=== PATIENT | male | born 1990 | race Two or more races ===

== ENCOUNTER 2025-05-01 23:50 | Inpatient (IN) | payer MEDICAID, OTHER ==
[~2025-05-01] VITALS: Ht 22.9 cm; Wt 69.1 kg
--- NOTE | 2025-05-02 00:41 | ED.PDOC ---
History of Present Illness HPI Comments 34-year-old male who came to ER for generalized weakness. Patient has history of diabetes type 2 but does not closely monitor his blood sugar levels. Past 2 days patient has been having generalized weakness, epigastric abdominal pain, nausea and vomiting. Blood sugar taken at home was 365. Patient admits that he is a daily alcohol drinker as well. Chief Complaint: General Weakness Time Seen by MD: 00:40 Reviewed Notes: Nurses Notes Allergies: Coded Allergies: No Known Drug Allergy (Verified Allergy, Unknown, 05/01/25) Information Source: Patient Mode of Arrival: Ambulatory Past Medical History PAST MEDICAL HISTORY: DM Surgical History: Denies all surgeries Family History Family History: Reviewed,noncontributory to illness Social History Smoker: Non-Smoker Alcohol: Denies ETOH Use Drugs: Denies Drug Use Lives In: Home Constitutional: reports: weakness; denies: chills, diaphoresis, fatigue, fever, malaise, sweats, others EENTM: denies: blurred vision, double vision, ear bleeding, ear discharge, ear drainage, ear pain, ear ringing, eye pain, eye redness, hearing loss, mouth pain, mouth swelling, nasal discharge, nose bleeding, nose congestion, nose pain, photophobia, tearing, throat pain, throat swelling, voice changes, others Respiratory: denies: cough, hemoptysis, orthopnea, SOB at rest, shortness of breath, SOB with excertion, stridor, wheezing, others Cardiovascular: denies: chest pain, dizzy spells, diaphoresis, Dyspnea on exertion, edema, irregular heart beat, left arm pain, lightheadedness, palpitations, PND, syncope, others Gastrointestinal: reports: abdominal pain, nausea, vomiting; denies: abdomen distended, blood streaked bowels, constipated, diarrhea, dysphagia, difficulty swallowing, hematemesis, melena, poor appetite, poor fluid intake, rectal bleeding, rectal pain, others Genitourinary: denies: burning, dysuria, flank pain, frequency, hematuria, incontinence, penile discharge, penile sore, pain, testicle pain, testicle swelling, urgency, others Neurological: denies: dizziness, fainting, headache, left sided numbness, left sided weakness, numbness, paresthesia, pre-existing deficit, right sided numbness, right sided weakness, seizure, speech problems, tingling, tremors, weakness, others Musculoskeletal: denies: back pain, gout, joint pain, joint swelling, muscle pain, muscle stiffness, neck pain, others Integumetry: denies: bruises, change in color, change in hair/nails, dryness, laceration, lesions, lumps, rash, wounds, others Allergic/Immunocompromised: denies: Difficulty Healing, Frequent Infections, Hives, Itching, others Hematologic/Lymphatic: denies: anemia, blood clots, easy bleeding, easy bruising, swollen glands, others Endocrine: denies: excessive hunger, excessive sweating, excessive thirst, excessive urination, flushing, intolerance to cold, intolerance to heat, unexplained weight gain, unexplained weight loss, others Psychiatric: denies: anxiety, bipolar disorder, depression, hopeless, panic disorder, schizophrenia, sleepless, suicidal, others Physical Exam General Appearance: No Apparent Distress, Normal, Other (Alcohol breath) HEENT: Normal ENT Inspection, Pharynx Normal, TMs Normal Neck: Full Range of Motion, Non-Tender, Normal, Normal Inspection Respiratory: Chest Non-Tender, Lungs Clear, No Accessory Muscle Use, No Respiratory Distress, Normal Breath Sounds Cardiovascular: No Edema, No JVD, No Murmur, No Gallop, Normal Peripheral Pulses, Tachycardia Breast Exam: Deferred Gastrointestinal: Epigastric, No Organomegaly, No Pulsatile Mass, Normal Bowel Sounds, Soft, Tenderness Genitalia: Deferred Pelvic: Deferred Rectal: Deferred Extremities: No calf tenderness, Normal capillary refill, Normal inspection, Normal range of motion, Non-tender, No pedal edema Musculoskeletal : Apperance: Normal Neurologic: Alert, tie tamper II-XII nml as Tested, No Motor Deficits, Normal Affect, Normal Mood, No Sensory Deficits Cerebellar Function: Normal Reflexes: Normal Skin: Dry, Normal Color, Warm Lymphatic: No Adenopathy Was a procedure done? Was a procedure done?: No Differential Dx Considerations may include: Anemia, electrolyte imbalance, hyperglycemia, alcohol intoxication, diabetic ketoacidosis, gastritis X-Ray, Labs, Meds, VS Vital Signs Date Time Temp Pulse Resp B/P (MAP) Pulse Ox O2 Delivery O2 Flow Rate FiO2 05/01/25 23:52 99.0 114 16 124/79 99 99.0 Lab Test 05/02/25 00:51 12/7/25 00:40 Range/Units POC Glucose 268 H 70-106 mg/dl White Blood Count 4.4 4.4-10.8 10^3/uL Red Blood Count 5.60 4.5-5.90 10^6/uL Hemoglobin 16.5 13.5-17.5 g/dL Hematocrit 49.6 41.0-53.0 % Mean Corpuscular Volume 88.5 80.0-100.0 fL Mean Corpuscular Hemoglobin 29.5 28.0-32.0 pg Mean Corpuscular Hemoglobin Concent 33.3 32.0-36.0 g/dL Red Cell Distribution Width 13.6 11.8-14.3 % Platelet Count 281 140-450 10^3/uL Mean Platelet Volume 7.4 6.9-10.8 fL Neutrophils (%) (Auto) 73.1 37.0-80.0 % Lymphocytes (%) (Auto) 21.8 10.0-50.0 % Monocytes (%) (Auto) 4.6 0.0-12.0 % Eosinophils (%) (Auto) 0.1 0.0-7.0 % Basophils (%) (Auto) 0.4 0.0-2.0 % Neutrophils # (Auto) 3.2 1.6-8.6 10 ^3/uL Lymphocytes # (Auto) 1.0 0.4-5.4 10 ^3/uL Monocytes # (Auto) 0.2 0-1.3 10 ^3/uL Eosinophils # (Auto) 0 0-0.8 10 ^3/uL Basophils # (Auto) 0 0-0.2 10 ^3/uL Nucleated Red Blood Cells 0.0 % Sodium Level 135 L 136-145 mmol/L Potassium Level 4.5 3.5-5.1 mmol/L Chloride Level 90 L 98-107 mmol/L Carbon Dioxide Level 16 L 20-31 mmol/L Anion Gap 29 H 5-15 Blood Urea Nitrogen 9 9-23 mg/dL Creatinine 0.99 0.700-1.30 mg/dL Glomerular Filtration Rate Calc 103 >90 mL/min BUN/Creatinine Ratio 9.1 L 10.0-20.0 Serum Glucose 281 H 74-106 mg/dL Calcium Level 9.9 8.7-10.4 mg/dL Lipase 26 12-53 U/L Plasma/Serum Blood Alcohol 190.7 H <10 mg/dL Time of 1ST Reevaluation: 00:31 Reevaluation 1ST: Unchanged Time of 2ND Reevaluation: 02:03 Reevaluation 2ND: Improved Patient Education/Counseling: Diagnosis, Treatment, Prognosis, Need For Follow Up Family Education/Counseling: Diagnosis, Treatment, Prognosis, Need For Follow Up, No Family Present Comments This is a patient who is diabetic who is also an alcoholic, presents to the ER complaining about generalized weakness. Patient is smells heavily of alcohol. He admits that for the past week he has been drinking every day. Prior to that he was taking Klonopin nightly habitually. Patient has DKA in addition to alcohol intoxication. He had not show any signs of withdrawal at this time. However with time he is likely to develop alcohol withdrawal since he is not able to drink especially with the concurrent DKA. Patient will be admitted to ICU for treatment of DKA as well as monitoring of alcohol withdrawal symptoms. SEPSIS Sepsis Screen Date sepsis recognized/suspect: May 01, 2025 Time Sepsis recognized/suspect: 2354 Recent Procedure: No On Antibiotic Therapy: No Respiratory Rate >20: No Heart Rate >90: Yes Temp<36 C (96.8 F) or >38.3 C: No SBP <90 or MAP <65 mmHG: No New Acute Mental Status Change: No Is the patient on CPAP, BIPAP,: No Physician Orders Accucheck (05/02/25 01:00) Accucheck (05/02/25 02:00) Accucheck (05/02/25 03:00) Accucheck (05/02/25 04:00) Accucheck (05/02/25 05:00) Accucheck (05/02/25 06:00) Accucheck (05/02/25 07:00) Accucheck (05/02/25 08:00) Accucheck (05/02/25 09:00) Accucheck (05/02/25 10:00) Accucheck (05/02/25 11:00) Accucheck (05/02/25 12:00) Accucheck (05/02/25 13:00) Accucheck (05/02/25 14:00) Accucheck (05/02/25 15:00) Accucheck (05/02/25 16:00) Accucheck (05/02/25 17:00) Accucheck (05/02/25 18:00) Accucheck (05/02/25 19:00) Accucheck (05/02/25 20:00) Accucheck (05/02/25 21:00) Accucheck (05/02/25 22:00) Accucheck (05/02/25 23:00) Vital Signs Date Time Temp Pulse Resp B/P (MAP) Pulse Ox O2 Delivery O2 Flow Rate FiO2 05/01/25 23:52 99.0 114 16 124/79 99 99.0 Laboratory Tests Test 05/02/25 00:40 White Blood Count 4.4 10^3/uL (4.4-10.8) Departure 1 Departure Time of Disposition: 02:02 Impression: Primary Impression: DKA (diabetic ketoacidosis) Additional Impression: Alcohol abuse Disposition: ADMITTED INPATIENT Admit to: ICU Condition: Serious Discharged With: Self, Relative Critical Care Note Critical Care Time?: Yes (35 min-critical care time only) Critical care comment: Due to concerns for patients condition deteriorating, the care required my highest level of attention and readiness to intervene. I assessed the patient, reviewed the medical records, ordered the appropriate tests and treatments, then reassessed for results and responsiveness. I communicated with medical personnel and consultants and formulated a plan of care. Total critical care time 55 minutes excludes any procedures Stability Stability form required: No Heart Score Heart Score: Heart Score Response (Comments) Value History N/A 0 EKG N/A 0 Age N/A 0 Risk Factors N/A 0 Troponin N/A 0 Total 0 I personally scribed for CLARE PEREZ MD ([email or web address]) on 05/02/25 at 00:41. Electronically submitted by Ye Florence ([email or web address]). CLARE PEREZ MD May 02, 2025 00:41
[2025-05-02 00:51] LABS: Hematocrit 49.6 % (41.0-53.0); Hemoglobin 16.5 g/dL (13.5-17.5); Mean Corpuscular Hemoglobin 29.5 pg (28.0-32.0); Mean Corpuscular Volume 88.5 fL (80.0-100.0); Nucleated Red Blood Cells % 0.0 %
[2025-05-02 01:01] LABS: Potassium 4.5 mmol/L (3.5-5.1)
[2025-05-02 01:02] LABS: Chloride 90 mmol/L (98-107); Sodium 135 mmol/L (136-145)
[2025-05-02 01:03] LABS: Anion Gap 29 (5-15); Calcium 9.9 mg/dL (8.7-10.4)
[2025-05-02 01:07] LABS: Carbon Dioxide 16 mmol/L (20-31)
[2025-05-02 01:08] LABS: BUN/Creatinine Ratio 9.1 (10.0-20.0); Lipase 26 U/L (12-53)
[2025-05-02 01:09] LABS: Blood Urea Nitrogen 9 mg/dL (9-23); Glucose 281 mg/dL (74-106)
[2025-05-02] MEDS ORDERED: DEXTROSE (50%) 50ML SYRG IV PRN (02:15)
[2025-05-02] MEDS: INSULIN LANTUS (GLARGINE) 1 /0.01ml (100units/ml) SC ONE ×2 (02:15→12:27)
[2025-05-02 02:33] LABS: Magnesium 2.4 mg/dL (1.6-2.6)
[2025-05-02] MEDS: ACCU-CHEK COMFORT CURVE STRIP VI SCH ×2 (03:00→18:14)
[2025-05-02] MEDS: SODIUM CHLORIDE 0.9% 1,000 ML IV ONE (03:52)
[2025-05-02] MEDS: ONDANSETRON ODT 4 MG TAB PO ONE (04:09)
[2025-05-02] MEDS: SODIUM CHLORIDE 0.9% 1,000 ML IV SCH ×5 (04:15→14:47)
[2025-05-02 06:00] VITALS: PULSE 95; RESP 26; O2SAT 100
[2025-05-02] MEDS: INSULIN DRIP 100 UNIT/100ML 100 ML IV SCH (06:00)
[2025-05-02 07:28] LABS: Urine Protein, UAD 1+ (Negative)
[2025-05-02 08:09] VITALS: PULSE 125; RESP 24; O2SAT 100
[2025-05-02] MEDS: ACETAMINOPHEN 325 MG TAB PO ONE (08:59)
[2025-05-02] MEDS: KETOROLAC TROMETH 30 MG/ML 1ML VIAL IV ONE (10:52)
[2025-05-02] MEDS ORDERED: ACETAMINOPHEN 325 MG TAB PO PRN (12:00)
--- NOTE | 2025-05-02 13:22 | DVHHP2 ---
History of Present Illness History of Present Illness This is a 34-year-old male with a medical history of type 2 diabetes mellitus on Lantus 18 units daily and metformin at home. He reports daily use of clonazepam for sleep, but he recently ran out and began drinking alcohol over the past two days, consuming approximately four beers per day. Since then, he developed generalized weakness, epigastric abdominal pain, and nausea. In the ED, CBC was normal. CMP showed an anion gap of 29, bicarbonate 16, and glucose 300 - 281. Serum ketones were >4000, and A1c 13.2. He was started on an insulin drip for concern of diabetic ketoacidosis, though alcoholic or starvation ketosis may also be contributing. His glucose has improved on insulin therapy. A repeat CMP now shows an anion gap of 17 with slight improvement in bicarbonate. Insulin drip will be stopped and transitioned to subcutaneous insulin. A repeat BMP at 7 p.m. is ordered to ensure safe continuation. Past Medical History Type 2 diabetes mellitus. Past Surgical History None reported. Social History Denies smoking. Started drinking alcohol over the past two days after running out of clonazepam. No other substances reported. ROS Positive for generalized weakness, epigastric abdominal pain, and nausea. No other complaints reported in the systems reviewed. Review of Systems Allergies: Coded Allergies: No Known Drug Allergy (Verified Allergy, Unknown, 05/01/25) Medications Current Medications Medications Dose Ordered Sig/Edwin Route Start Time Stop Time Status Last Admin Dose Admin Insulin Human (Reg)/Sodium Chloride 100 ml @ 0.5 mls/hr Q24H IV 05/02/25 02:15 05/02/25 06:00 3 MLS/HR Dextrose 50 ml UD PRN IV 05/02/25 02:15 Diagnostic Test (Pha) 1 strip Q90MIN 05/02/25 03:00 05/02/25 12:01 1 STRIP Sodium Chloride 1,000 ml @ 60 mls/hr [id number] IV 05/02/25 12:00 05/02/25 12:27 60 MLS/HR Acetaminophen 650 mg Q6HP PRN PO 05/02/25 12:00 Enoxaparin Sodium 40 mg DAILY SC 05/03/25 10:00 Exam Vital Signs Vital Signs Date Time Temp Pulse Resp B/P (MAP) Pulse Ox O2 Delivery O2 Flow Rate FiO2 05/02/25 13:18 105 05/02/25 12:45 16 125/86 (99) 100 05/02/25 12:00 98.2 98.2 05/02/25 08:09 Room Air* 0 21 Exam General: Alert, oriented, resting comfortably. HEENT: Normal. CV: Regular rate and rhythm. No murmurs. Lungs: Clear bilaterally. Abdomen: Soft, nontender, nondistended. Extremities: No edema. Neuro: no focal deficits. Skin: Warm, dry. Labs/Xrays Labs Test 05/02/25 12:18 05/02/25 07:08 05/02/25 00:40 Range/Units POC Glucose 199 H 70-106 mg/dl Urine Color Light-yellow Yellow Urine Clarity Clear Clear Urine pH 5.5 5.0-9.0 Urine Specific [place] 1.029 1.001-1.035 Urine Protein 1+ H Negative Urine Ketones 4+ H Negative Urine Blood Negative Negative /uL Urine Nitrite Negative Negative Urine Bilirubin Negative Negative Urine Urobilinogen Normal Negative mg/dL Urine Leukocyte Esterase Negative Negative /uL Urine RBC 1 0 - 3 /hpf Urine Microscopic WBC 1 0-3 /HPF Urine Squamous Epithelial Cells None seen <5 /hpf Urine Bacteria None seen None Seen /hpf Urine Mucus Few None Seen Urine Glucose 4+ H Normal mg/dL White Blood Count 4.4 4.4-10.8 10^3/uL Red Blood Count 5.60 4.5-5.90 10^6/uL Hemoglobin 16.5 13.5-17.5 g/dL Hematocrit 49.6 41.0-53.0 % Mean Corpuscular Volume 88.5 80.0-100.0 fL Mean Corpuscular Hemoglobin 29.5 28.0-32.0 pg Mean Corpuscular Hemoglobin Concent 33.3 32.0-36.0 g/dL Red Cell Distribution Width 13.6 11.8-14.3 % Platelet Count 281 140-450 10^3/uL Mean Platelet Volume 7.4 6.9-10.8 fL Neutrophils (%) (Auto) 73.1 37.0-80.0 % Lymphocytes (%) (Auto) 21.8 10.0-50.0 % Monocytes (%) (Auto) 4.6 0.0-12.0 % Eosinophils (%) (Auto) 0.1 0.0-7.0 % Basophils (%) (Auto) 0.4 0.0-2.0 % Neutrophils # (Auto) 3.2 1.6-8.6 10 ^3/uL Lymphocytes # (Auto) 1.0 0.4-5.4 10 ^3/uL Monocytes # (Auto) 0.2 0-1.3 10 ^3/uL Eosinophils # (Auto) 0 0-0.8 10 ^3/uL Basophils # (Auto) 0 0-0.2 10 ^3/uL Nucleated Red Blood Cells 0.0 % Sodium Level 135 L 136-145 mmol/L Potassium Level 4.5 3.5-5.1 mmol/L Chloride Level 90 L 98-107 mmol/L Carbon Dioxide Level 16 L 20-31 mmol/L Anion Gap 29 H 5-15 Blood Urea Nitrogen 9 9-23 mg/dL Creatinine 0.99 0.700-1.30 mg/dL Glomerular Filtration Rate Calc 103 >90 mL/min BUN/Creatinine Ratio 9.1 L 10.0-20.0 Serum Glucose 281 H 74-106 mg/dL Serum Osmolality 256 L 278-298 mOsm/kg Calcium Level 9.9 8.7-10.4 mg/dL Phosphorus Level 4.3 2.4-5.1 mg/dL Magnesium Level 2.4 1.6-2.6 mg/dL Lipase 26 12-53 U/L Beta-Hydroxybutyric Acid > 4.500 H < 0.4 mmol/L Plasma/Serum Blood Alcohol 190.7 H <10 mg/dL SEPSIS Sepsis Screen Date sepsis recognized/suspect: May 02, 2025 Time Sepsis recognized/suspect: 618 Recent Procedure: No On Antibiotic Therapy: No Respiratory Rate >20: Yes Heart Rate >90: No Temp<36 C (96.8 F) or >38.3 C: No SBP <90 or MAP <65 mmHG: No New Acute Mental Status Change: No Is the patient on CPAP, BIPAP,: No Physician Orders Basic Metabolic Panel (05/02/25 11:49) Admit (05/02/25 11:50) Code Status (05/02/25 11:50) Vital Signs .PER UNIT PROTOCOL (05/02/25 11:50) Review Orders With Adm. (05/02/25 11:50) Npo (Nothing By Mouth) Diet (05/02/25 Lunch) Sodium Chloride 0.9% (05/02/25 12:00) Acetaminophen Tablet (Tylenol Tablet) (05/02/25 12:00) Notify Md Of Changes From Base (05/02/25 11:50) Advance Directive (05/02/25 11:50) Patient Condition (05/02/25 11:50) Allergies (05/02/25 11:50) Hemoglobin A1c (05/02/25 11:50) Enoxaparin Sodium (Lovenox) (05/03/25 10:00) Oxygen By Nasal Cannula (05/02/25 11:50) Stat Ekg For Chest Pain (05/02/25 11:50) Notify Md Of Changes From Base (05/02/25 11:50) Armature Winder Repair Helper For 24 Hours (05/02/25 11:50) Emergency Dysrhythmia Protocol (05/02/25 11:50) Rhythm Strips Once Every Shift (05/02/25 11:50) Communication Order (05/02/25 11:55) Chest Xray 1 View (05/02/25 12:46) Diphenhydramine Capsule (Benadryl Capsul (05/02/25 13:15) Vital Signs Date Time Temp Pulse Resp B/P (MAP) Pulse Ox O2 Delivery O2 Flow Rate FiO2 05/02/25 13:18 105 05/02/25 12:45 111 16 125/86 (99) 100 05/02/25 12:31 96 16 117/73 (88) 99 05/02/25 12:15 77 17 115/73 (87) 99 05/02/25 12:00 98.2 82 20 124/79 (94) 99 98.2 05/02/25 11:45 105 18 132/80 (97) 99 05/02/25 11:30 100 21 131/77 (95) 99 05/02/25 11:15 94 18 129/81 (97) 99 05/02/25 11:00 145 17 112/92 (99) 99 05/02/25 10:45 87 17 123/81 (95) 99 05/02/25 10:30 91 16 122/79 (93) 99 05/02/25 10:15 94 18 122/64 (83) 99 05/02/25 10:00 92 19 116/64 (81) 100 05/02/25 09:45 97 19 121/79 (93) 99 05/02/25 09:30 107 15 131/79 (96) 98 05/02/25 09:15 93 16 126/83 (97) 99 05/02/25 09:00 108 19 128/91 (103) 98 05/02/25 08:45 102 34 128/81 (97) 99 05/02/25 08:31 108 05/02/25 08:30 99 22 124/81 (95) 99 05/02/25 08:15 102 21 125/83 (97) 98 05/02/25 08:09 125 24 100 Room Air* 0 21 05/02/25 08:00 125 24 132/88 (103) 100 05/02/25 07:45 122 19 133/86 (102) 98 05/02/25 07:30 98.5 125 24 132/88 (103) 100 98.5 05/02/25 07:15 103 20 126/81 (96) 98 05/02/25 07:00 109 31 128/87 (101) 99 05/02/25 06:45 111 29 140/87 (104) 98 05/02/25 06:30 108 21 115/62 (79) 98 05/02/25 06:15 102 21 135/88 (104) 99 05/02/25 06:00 98.3 95 26 130/87 (101) 100 98.3 05/02/25 06:00 95 26 100 Room Air* 0 21 Medications Medications Dose Ordered Sig/Edwin Route Start Time Stop Time Status Last Admin Dose Admin Acetaminophen 650 mg ONCE ONCE PO 05/02/25 09:00 05/02/25 09:01 DC 05/02/25 08:59 650 MG Diagnostic Test (Pha) 1 strip Q90MIN 05/02/25 03:00 05/02/25 12:01 1 STRIP Insulin Glargine 20 units ONCE ONCE SC 05/02/25 12:00 05/02/25 12:07 DC 05/02/25 12:27 20 UNITS Insulin Human (Reg)/Sodium Chloride 100 ml @ 0.5 mls/hr Q24H IV 05/02/25 02:15 05/02/25 06:00 3 MLS/HR Ketorolac Tromethamine 15 mg ONCE ONCE IV 05/02/25 10:30 05/02/25 10:44 DC 05/02/25 10:52 15 MG Sodium Chloride 1,000 ml @ 60 mls/hr [id number] IV 05/02/25 12:00 05/02/25 12:27 60 MLS/HR Sodium Chloride 1,000 ml @ 150 mls/hr Q6H40M IV 05/02/25 08:15 05/02/25 12:07 DC 05/02/25 08:19 150 MLS/HR Sodium Chloride 1,000 ml @ 250 mls/hr Q4H IV 05/02/25 06:15 05/02/25 08:14 DC 05/02/25 06:16 250 MLS/HR Sodium Chloride 1,000 ml @ 500 mls/hr Q2H IV 05/02/25 02:15 05/02/25 06:14 DC 05/02/25 05:30 500 MLS/HR Assessment/Plan Assessment/Plan #Diabetic ketoacidosis #Starvation and alcoholic ketoacidosis #Type 2 diabetes mellitus, uncontrolled Presentation consistent with mild to moderate DKA in the setting of poorly controlled diabetes and recent alcohol use. Initial anion gap was 29 with elevated ketones and hyperglycemia, now improving to 17. Glucose trending down, bicarbonate improving. Transition to subcutaneous insulin, continue monitoring metabolic status, and repeat BMP at 7 p.m. to confirm closure and safety of ongoing subcutaneous regimen. IV fluids 120 cc/h Lantus 20 UI already given Lantus 20 UI at bed time as well Moderate ISS Transfer to telemetry hba1c 13 #Alcohol use Recent binge drinking triggered by abrupt cessation of clonazepam. Could contribute to ketosis. Monitor for withdrawal, provide supportive care, and supervisor counseling and guidance regarding cessation and follow-up care. Case discussed with Dr Sloan Full code Plan discussed with: Patient, Other (rn) My Orders Orders - DANA GARCIA RESIDENT Procedure Category Date Status Time Basic Metabolic Panel LAB 05/02/25 Logged 11:49 Admit ADMIT 05/02/25 Transmitted 11:50 Code Status CODE 05/02/25 Transmitted 11:50 Vital Signs DEE 05/02/25 In Process 11:50 Review Orders With DEE 05/02/25 In Process 11:50 Npo (Nothing By DIET 05/02/25 Transmitted Mouth) Diet Lunch Sodium Chloride 0.9% PHA 05/02/25 In Process 12:00 Acetaminophen Tablet PHA 05/02/25 In Process (Tylenol Tablet) 12:00 Notify Md Of Changes [facility] 05/02/25 In Process From Base 11:50 Advance Directive DEE 05/02/25 In Process 11:50 Patient Condition ORDERS 05/02/25 Transmitted 11:50 Allergies DEE 05/02/25 In Process 11:50 Hemoglobin A1c LAB 05/02/25 In Process 11:50 Enoxaparin Sodium PHA 05/03/25 In Process (Lovenox) 10:00 Oxygen By Nasal RT 05/02/25 Transmitted Cannula 11:50 Stat Ekg For Chest [facility] 05/02/25 In Process Pain 11:50 Notify Md Of Changes [facility] 05/02/25 In Process From Base 11:50 Armature Winder Repair Helper For [facility] 05/02/25 In Process 24 Hours 11:50 Emergency Dysrhythmia [facility] 05/02/25 In Process Protocol 11:50 Rhythm Strips Once [facility] 05/02/25 In Process Every Shift 11:50 Communication Order ORDERS 05/02/25 Transmitted 11:55 Chest Xray 1 View XY 05/02/25 Taken 12:46 Diphenhydramine [facility] 05/02/25 Logged Capsule (Benadryl 13:15 Date of Service: May 02, 2025 Billing Provider: TEENA SLOAN MD Common Visit Codes: [id number] INP/OBS CARE (HIGH) Secondary Visit Codes: [id number] CARE PLAN 30 MINUTES DANA GARCIA May 02, 2025 13:22
--- NOTE | 2025-05-02 13:22 | DVH ---
CLINICAL INFORMATION: Rule out aspiration pneumonia. No other clinical information provided. TECHNIQUE: Single AP portable chest radiograph was obtained. COMPARISON: None FINDINGS: Lungs: Mild atelectasis in the left lung base. No focal consolidation. Mild perihilar interstitial opacities. Cardiac: Heart size is within normal limits. Pulmonary vasculature: Unremarkable. Mediastinum/brenda: Unremarkable. Bones: No acute osseous abnormality identified. Other: No other significant findings. IMPRESSION: Mild atelectasis in the left lung base and mild perihilar interstitial opacities. No focal consolidation.
[2025-05-02 14:10] LABS: Chloride 101 mmol/L (98-107); Potassium 4.5 mmol/L (3.5-5.1)
[2025-05-02 14:11] LABS: Anion Gap 17 (5-15)
[2025-05-02 14:12] LABS: Calcium 9.4 mg/dL (8.7-10.4); Carbon Dioxide 17 mmol/L (20-31); Sodium 135 mmol/L (136-145)
[2025-05-02 14:16] LABS: BUN/Creatinine Ratio 11.7 (10.0-20.0); Blood Urea Nitrogen 11 mg/dL (9-23)
[2025-05-02 14:17] LABS: Glucose 180 mg/dL (74-106)
[2025-05-02] MEDS: KETOROLAC TROMETH 30 MG/ML 1ML VIAL IV PRN (16:04)
[2025-05-02] MEDS: InsuLIN REG 1unit/0.01ml Soln (100units/ml) SC SCH ×2 (17:05→22:00)
[2025-05-02] MEDS ORDERED: INSULIN LANTUS (GLARGINE) 1 /0.01ml (100units/ml) SC SCH ×2 (17:30→22:00)
[2025-05-02] MEDS: INSULIN LANTUS (GLARGINE) 1 /0.01ml (100units/ml) SC SCH (17:49)
[2025-05-02 18:08] LABS: Base Excess -14.3 mmol/L (-2.0-3.0)
[2025-05-02 19:12] VITALS: PULSE 96; RESP 19; O2SAT 99
[2025-05-02 19:21] LABS: Chloride 102 mmol/L (98-107); Potassium 4.0 mmol/L (3.5-5.1); Sodium 137 mmol/L (136-145)
[2025-05-02 19:22] LABS: Anion Gap 18 (5-15); Calcium 9.2 mg/dL (8.7-10.4)
[2025-05-02 19:27] LABS: BUN/Creatinine Ratio 14.8 (10.0-20.0); Blood Urea Nitrogen 13 mg/dL (9-23)
[2025-05-02 19:34] LABS: Carbon Dioxide 17 mmol/L (20-31); Glucose 179 mg/dL (74-106)
[2025-05-02] MEDS: PANTOPRAZOLE 40 MG TAB PO ONE (20:29)
[2025-05-02 21:57] VITALS: BP 119/85; PULSE 74; RESP 17; TEMP 98.5; O2SAT 99
[2025-05-02 22:00] VITALS: BP 119/85; PULSE 74; RESP 17; TEMP 98.5; O2SAT 99
[2025-05-02] MEDS ORDERED: METF-370 PO (22:15)
[2025-05-02] MEDS ORDERED: CLON0.5T3 PO (22:15)
[2025-05-02] MEDS: clonazePAM 0.5 MG TAB PO ONE (22:45)
[2025-05-03] VITALS (8 sets, daily range): BP systolic 107–122; BP diastolic 71–77; PULSE 72–89; RESP 16–17; TEMP 97.9–98.3; O2SAT 99–100
[2025-05-03 05:14] LABS: Hematocrit 39.0 % (41.0-53.0); Hemoglobin 13.0 g/dL (13.5-17.5); Mean Corpuscular Hemoglobin 29.0 pg (28.0-32.0); Mean Corpuscular Volume 86.9 fL (80.0-100.0); Nucleated Red Blood Cells % 0.1 %
[2025-05-03 05:31] LABS: Alanine Aminotransferase 26 U/L (7-40); Albumin 3.7 g/dL (3.2-4.8); Alkaline Phosphatase 96 U/L (46-116); Anion Gap 14 (5-15); BUN/Creatinine Ratio 13.9 (10.0-20.0); Blood Urea Nitrogen 11 mg/dL (9-23); Carbon Dioxide 23 mmol/L (20-31); Chloride 102 mmol/L (98-107); Sodium 139 mmol/L (136-145); Total Protein 5.9 g/dL (5.7-8.2)
[2025-05-03 05:32] LABS: Bilirubin, Total 0.5 mg/dL (0.2-1.0)
[2025-05-03 05:33] LABS: Calcium 8.4 mg/dL (8.7-10.4); Glucose 142 mg/dL (74-106); Potassium 3.5 mmol/L (3.5-5.1)
[2025-05-03] MEDS: PANTOPRAZOLE 40 MG TAB PO SCH (05:51)
[2025-05-03] MEDS: ENOXAPARIN SOD 40 MG/0.4 ML SYRINGE SC SCH (09:55)
[2025-05-03] MEDS ORDERED: INSULIN LANTUS (GLARGINE) 1 /0.01ml (100units/ml) SC SCH (10:00)
--- NOTE | 2025-05-03 13:47 | DVHPN2 ---
Reviewed: Care Plan, H&P, Labs, Medications, Previous Orders, Radiology Changes from previous H/P or p: No Changes Objective Vitals Vital Signs Date Time Temp Pulse Resp B/P (MAP) Pulse Ox O2 Delivery O2 Flow Rate FiO2 05/03/25 09:00 97.9 73 16 109/77 (88) 100 97.9 05/03/25 08:00 Room Air* 0 21 Intake/Output Intake and Output 05/03/25 07:00 Intake Total 1990 ml Output Total 2100 ml Balance -110 ml Intake Oral 1000 ml IV Total 990 ml Output Urine Total 2100 ml # Voids 2 Medications Current Medications Medications Dose Ordered Sig/Edwin Route Start Time Stop Time Status Last Admin Dose Admin Dextrose 50 ml UD PRN IV 05/02/25 02:15 Acetaminophen 650 mg Q6HP PRN PO 05/02/25 12:00 Enoxaparin Sodium 40 mg DAILY SC 05/03/25 10:00 05/03/25 09:55 40 MG Insulin Human Regular HS SC 05/02/25 22:00 Insulin Human Regular AC SC 05/02/25 17:00 05/03/25 11:37 9 UNITS Sodium Chloride 1,000 ml @ 120 mls/hr Q8H20M IV 05/02/25 14:45 05/03/25 08:28 120 MLS/HR Diagnostic Test (Pha) 1 strip Q4HR 05/02/25 18:00 05/03/25 10:08 1 STRIP Ketorolac Tromethamine 15 mg Q6HPRN PRN IV 05/02/25 15:45 05/07/25 15:44 05/03/25 00:20 15 MG Insulin Glargine 20 units BID SC 05/02/25 17:45 05/03/25 10:08 20 UNITS Pantoprazole Sodium 40 mg DAILY@0600 PO 05/03/25 06:00 05/03/25 05:51 40 MG Laboratory Results Laboratory Tests 05/03/25 04:43 Chemistry Test 05/02/25 18:57 05/03/25 04:43 Calcium Level 9.2 mg/dL (8.7-10.4) 8.4 mg/dL (8.7-10.4) L Albumin 3.7 g/dL (3.2-4.8) Total Protein 5.9 g/dL (5.7-8.2) LFT Test 05/03/25 04:43 Alanine Aminotransferase (ALT) 26 U/L (7-40) Alkaline Phosphatase 96 U/L (46-116) Aspartate Amino Transferase (AST) 21 U/L (13-40) Total Bilirubin 0.5 mg/dL (0.2-1.0) Urinalysis Test 05/02/25 07:08 Urine Color Light-yellow (Yellow) Urine Clarity Clear (Clear) Urine pH 5.5 (5.0-9.0) Urine Specific [place] 1.029 (1.001-1.035) Urine Protein 1+ (Negative) H Urine Ketones 4+ (Negative) H Urine Blood Negative /uL (Negative) Urine Nitrite Negative (Negative) Urine Bilirubin Negative (Negative) Urine Urobilinogen Normal mg/dL (Negative) Urine Leukocyte Esterase Negative /uL (Negative) Urine RBC 1 /hpf (0 - 3) Urine Microscopic WBC 1 /HPF (0-3) Urine Squamous Epithelial Cells None seen /hpf (<5) Urine Bacteria None seen /hpf (None Seen) Urine Mucus Few (None Seen) Urine Glucose 4+ mg/dL (Normal) H Labs and/or images reviewed: Labs reviewed by me, Image(s) reviewed by me Assessment/Plan Assessment/Plan Acute alcoholic intoxication: Banana bag Librium counseling Acute dehydration: LR 125 mL/hour Acute diabetic ketoacidosis: Insulin sliding scale Uncontrolled diabetes A1c 13.2 glucose 318: Counseling Moderate malnutrition Chronic current alcohol abuse: Counseling Plan discussed with: Patient My Orders Orders - ROVERTO DWYER MD Procedure Category Date Status Time Banana Bag Ns PHA 05/03/25 Transmitted 18:00 Librium 50mg Po Q8hr PHA 05/03/25 Transmitted Day 1 13:45 Librium 50mg Po Q12hr PHA 05/04/25 Transmitted Day 2 10:00 Librium 25mg Po Q12hr PHA 05/05/25 Transmitted X Day 3 10:00 Librium 25mg Po Qam PHA 05/06/25 Transmitted Day 4 07:00 Date of Service: May 03, 2025 Billing Provider: ROVERTO DWYER MD Common Visit Codes: [id number] INP/OBS CARE(HIGH) ROVERTO DWYER MD May 03, 2025 13:47
[2025-05-03] MEDS: LACTATED RINGER'S 1,000 ML IV ONE (14:57)
[2025-05-03] MEDS: FOLIC ACID 1 MG, MAGNESIUM SULF SDV 50% 8 MEQ, MULTIPLE VITAMIN 10 ML, THIAMINE INJ 100... INJ SCH (18:00)
[2025-05-03] MEDS: TEMAZEPAM 15 MG CAP PO ONE (22:50)
[2025-05-04 01:00] VITALS: BP 110/17; PULSE 92; RESP 17; TEMP 98.3; O2SAT 100
[2025-05-04 05:00] VITALS: BP 111/78; PULSE 104; RESP 18; TEMP 98.2; O2SAT 99
[2025-05-04 08:00] VITALS: PULSE 80; PULSE 99; RESP 17; O2SAT 100
[2025-05-04 09:00] VITALS: BP 120/78; PULSE 80; RESP 17; TEMP 97.9; O2SAT 100
[2025-05-04] MEDS ORDERED: CHL25C PO (12:13)
[2025-05-04] MEDS ORDERED: FOLI-119 PO (12:13)
[2025-05-04] MEDS ORDERED: THIA100T13 PO (12:13)
--- NOTE | 2025-05-04 12:15 | DVHPN2 ---
Reviewed: Care Plan, H&P, Labs, Medications, Previous Orders, Radiology Changes from previous H/P or p: No Changes Objective Vitals Vital Signs Date Time Temp Pulse Resp B/P (MAP) Pulse Ox O2 Delivery O2 Flow Rate FiO2 05/04/25 05:00 98.2 104 18 111/78 (89) 99 98.2 05/03/25 20:00 Room Air* 0 21 Intake/Output Intake and Output 05/04/25 07:00 Intake Total 2300 ml Balance 2300 ml Intake Oral 700 ml IV Total 1000 ml Other 600 ml # Voids 2 # Bowel Movements 1 Medications Current Medications Medications Dose Ordered Sig/[place] Route Start Time Stop Time Status Last Admin Dose Admin Dextrose 50 ml UD PRN IV 05/02/25 02:15 Acetaminophen 650 mg Q6HP PRN PO 05/02/25 12:00 Enoxaparin Sodium 40 mg DAILY SC 05/03/25 10:00 05/04/25 09:08 40 MG Insulin Human Regular HS SC 05/02/25 22:00 05/03/25 22:50 4 UNITS Insulin Human Regular AC SC 05/02/25 17:00 05/04/25 12:02 2 UNITS Sodium Chloride 1,000 ml @ 120 mls/hr Q8H20M IV 05/02/25 14:45 05/04/25 09:07 120 MLS/HR Diagnostic Test (Pha) 1 strip Q4HR 05/02/25 18:00 05/04/25 09:17 1 STRIP Ketorolac Tromethamine 15 mg Q6HPRN PRN IV 05/02/25 15:45 05/07/25 15:44 05/03/25 00:20 15 MG Insulin Glargine 20 units BID SC 05/02/25 17:45 05/04/25 09:51 20 UNITS Pantoprazole Sodium 40 mg DAILY@0600 PO 05/03/25 06:00 05/04/25 05:34 40 MG Folic Acid 1 mg/ Magnesium Sulfate 8 meq/ Multivitamins 10 ml/Thiamine HCl 100 mg/Sodium Chloride 1,013.2 ml @ 126.247 mls/hr DAILY@1800 INJ 05/03/25 18:00 05/03/25 18:00 126.247 MLS/HR Chlordiazepoxide HCl 50 mg Q12HR PO 05/04/25 10:00 05/04/25 22:01 05/04/25 09:08 50 MG Chlordiazepoxide HCl 25 mg Q12HR PO 05/05/25 10:00 05/05/25 22:01 Chlordiazepoxide HCl 25 mg QAM PO 05/06/25 07:00 05/06/25 07:01 Laboratory Results Laboratory Tests 05/03/25 04:43 Urinalysis Test 05/02/25 07:08 Urine Color Light-yellow (Yellow) Urine Clarity Clear (Clear) Urine pH 5.5 (5.0-9.0) Urine Specific [place] 1.029 (1.001-1.035) Urine Protein 1+ (Negative) H Urine Ketones 4+ (Negative) H Urine Blood Negative /uL (Negative) Urine Nitrite Negative (Negative) Urine Bilirubin Negative (Negative) Urine Urobilinogen Normal mg/dL (Negative) Urine Leukocyte Esterase Negative /uL (Negative) Urine RBC 1 /hpf (0 - 3) Urine Microscopic WBC 1 /HPF (0-3) Urine Squamous Epithelial Cells None seen /hpf (<5) Urine Bacteria None seen /hpf (None Seen) Urine Mucus Few (None Seen) Urine Glucose 4+ mg/dL (Normal) H Labs and/or images reviewed: Labs reviewed by me, Image(s) reviewed by me Assessment/Plan Assessment/Plan Acute alcoholic intoxication: Banana bag Librium counseling Acute dehydration: LR 125 mL/hour Acute diabetic ketoacidosis: Insulin sliding scale Uncontrolled diabetes A1c 13.2 glucose 318: Counseling Moderate malnutrition Chronic current alcohol abuse: Counseling Noncompliance patient says he was not using his Lantus for 3-4 days and was drinking alcohol Pt Feels better without any symptoms and wants to go home today RN and the patient's family at bedside Plan discussed with: Patient My Orders Orders - ROVERTO DWYER MD Procedure Category Date Status Time Folic Acid... PHA 05/03/25 In Process 18:00 Chlordiazepoxide Hcl PHA 05/04/25 In Process Capsule (Librium Ca 10:00 Chlordiazepoxide Hcl PHA 05/05/25 In Process Capsule (Librium Ca 10:00 Chlordiazepoxide Hcl PHA 05/06/25 In Process Capsule (Librium Ca 07:00 Date of Service: May 04, 2025 Billing Provider: ROVERTO DWYER MD Common Visit Codes: [id number] INP/OBS CARE(HIGH) ROVERTO DWYER MD May 04, 2025 12:15
--- NOTE | 2025-05-04 12:21 | DVHDS2 ---
Discharge Summary Date of Admission May 02, 2025 at 11:50 Date of Discharge: May 04, 2025 Admitting Diagnosis Generalized weakness and high blood sugars alcohol intoxication Wounds: None Labs/Diagnostic Data: Laboratory Results Test 05/04/25 10:44 05/03/25 04:43 05/02/25 07:08 05/02/25 02:19 POC Glucose 138 mg/dl (70-106) White Blood Count 6.0 10^3/uL (4.4-10.8) Red Blood Count 4.48 10^6/uL (4.5-5.90) Hemoglobin 13.0 g/dL (13.5-17.5) Hematocrit 39.0 % (41.0-53.0) Mean Corpuscular Volume 86.9 fL (80.0-100.0) Mean Corpuscular Hemoglobin 29.0 pg (28.0-32.0) Mean Corpuscular Hemoglobin Concent 33.3 g/dL (32.0-36.0) Red Cell Distribution Width 13.4 % (11.8-14.3) Platelet Count 218 10^3/uL (140-450) Mean Platelet Volume 7.4 fL (6.9-10.8) Neutrophils (%) (Auto) 47.1 % (37.0-80.0) Lymphocytes (%) (Auto) 37.3 % (10.0-50.0) Monocytes (%) (Auto) 14.0 % (0.0-12.0) Eosinophils (%) (Auto) 0.9 % (0.0-7.0) Basophils (%) (Auto) 0.7 % (0.0-2.0) Neutrophils # (Auto) 2.8 10 ^3/uL (1.6-8.6) Lymphocytes # (Auto) 2.2 10 ^3/uL (0.4-5.4) Monocytes # (Auto) 0.8 10 ^3/uL (0-1.3) Eosinophils # (Auto) 0.1 10 ^3/uL (0-0.8) Basophils # (Auto) 0 10 ^3/uL (0-0.2) Nucleated Red Blood Cells 0.1 % Sodium Level 139 mmol/L (136-145) Potassium Level 3.5 mmol/L (3.5-5.1) Chloride Level 102 mmol/L (98-107) Carbon Dioxide Level 23 mmol/L (20-31) Anion Gap 14 (5-15) Blood Urea Nitrogen 11 mg/dL (9-23) Creatinine 0.79 mg/dL (0.700-1.30) Glomerular Filtration Rate Calc 120 mL/min (>90) BUN/Creatinine Ratio 13.9 (10.0-20.0) Serum Glucose 142 mg/dL (74-106) Calcium Level 8.4 mg/dL (8.7-10.4) Total Bilirubin 0.5 mg/dL (0.2-1.0) Aspartate Amino Transferase (AST) 21 U/L (13-40) Alanine Aminotransferase (ALT) 26 U/L (7-40) Alkaline Phosphatase 96 U/L (46-116) Total Protein 5.9 g/dL (5.7-8.2) Albumin 3.7 g/dL (3.2-4.8) Urine Color Light-yellow (Yellow) Urine Clarity Clear (Clear) Urine pH 5.5 (5.0-9.0) Urine Specific [place] 1.029 (1.001-1.035) Urine Protein 1+ (Negative) Urine Ketones 4+ (Negative) Urine Blood Negative /uL (Negative) Urine Nitrite Negative (Negative) Urine Bilirubin Negative (Negative) Urine Urobilinogen Normal mg/dL (Negative) Urine Leukocyte Esterase Negative /uL (Negative) Urine RBC 1 /hpf (0 - 3) Urine Microscopic WBC 1 /HPF (0-3) Urine Squamous Epithelial Cells None seen /hpf (<5) Urine Bacteria None seen /hpf (None Seen) Urine Mucus Few (None Seen) Urine Glucose 4+ mg/dL (Normal) Blood Gas Specimen Type Arterial Blood Gas Sample Site Right radial Blood Gas Patient Temperature 37.0 Arterial Blood Date Drawn [id number] Arterial Blood pH 7.299 (7.350-7.450) Arterial Blood Partial Pressure CO2 19.5 mmHg (35.0-48.0) Arterial Blood Partial Pressure O2 100.0 mmHg (83.0-108.0) Arterial Blood HCO3 9.4 mmol/L (21.0-28.0) Arterial Blood Oxygen Saturation 97.3 % (94.0-98.0) Arterial Blood Base Excess -14.3 mmol/L (-2.0-3.0) Arterial Blood Oxyhemoglobin 95.7 % (94.0-98.0) Arterial Blood Carboxyhemoglobin 0.9 % (0.5-1.5) Arterial Blood Methemoglobin 0.7 % (0.0-1.5) Arterial Blood Deoxyhemoglobin 2.7 % (0.0-5.0) Carlos Test Modified Blood Gas Total Hemoglobin 16.80 g/dL (13.5-17.5) Blood Gas Modality Room air FiO2 % 21.0 Blood Gas Critical Value Read Back Yes Blood Gas Notified Whom martin Brennan md Blood Gas Notified Time [id number] Blood Gas Notified By Test 05/02/25 00:40 Hemoglobin A1c 13.2 % A1C (<5.7) Serum Osmolality 256 mOsm/kg (278-298) Phosphorus Level 4.3 mg/dL (2.4-5.1) Magnesium Level 2.4 mg/dL (1.6-2.6) Lipase 26 U/L (12-53) Beta-Hydroxybutyric Acid > 4.500 mmol/L (< 0.4) Plasma/Serum Blood Alcohol 190.7 mg/dL (<10) Other Laboratory Tests 05/03/25 04:43 Brief Hx & Hospital Course: 34-year-old male with a history of insulin dependent diabetes taking Lantus 18 units daily came in for altered mental status confusion and generalized weakness says he was drinking alcohol for three days stopped taking Lantus. Blood alcohol 199 treated with a thiamine folic acid Librium banana bag and IV fluids glucose 318 treated with the insulin sliding scale IV fluids A1c 13.2 counseled about alcohol abuse and also counseled about taking insulin regularly at the time of discharge patient is afebrile stable vital signs and wants to go home. Prescription for Librium thiamine folic acid transmitted to pharmacy he was advised to continue taking his Lantus and follow up with the discharge clinic in one week Consults/Reason for consult None Operations or Procedures Chest x-ray Condition at Discharge: Fair Final Diagnosis/Problems List Acute alcoholic intoxication: Banana bag Librium counseling Acute dehydration: LR 125 mL/hour Acute diabetic ketoacidosis: Insulin sliding scale Uncontrolled diabetes A1c 13.2 glucose 318: Counseling Moderate malnutrition Chronic current alcohol abuse: Counseling Noncompliance patient says he was not using his Lantus for 3-4 days and was drinking alcohol Discharge Disposition: Home Discharge Instruct/Medications Diet: Regular Activity: Light activity Follow Up/Referral: Stop drinking alcohol Use insulin regularly Follow up with discharge clinic in one week Medications: Librium Thiamine Folic acid Transmitted to pharmacy Scheduled Chlordiazepoxide Hcl (Librium), 25 MG PO TID Clonazepam (KlonoPIN TABLET), 1 TAB PO HS, (Reported) Folic Acid (Folic Acid), 1 MG PO DAILY Metformin Hydrochloride (Metformin Hcl), 1,000 MG PO BID, (Reported) Thiamine HCl (Thiamine Hydrochloride), 100 MG PO DAILY 39 (Time Taken for discharge summary 39 minutes) Discharge Statement: "Patient was advised to return to the ER or call 911 if any headaches, dizziness, shortness of breath, chest pain, abdominal pain, bleeding, fevers, or worsening of medical condition. Patient was counseled about treatment plan, medications, possible side effects, patientverbalized understanding. All questions were answered to the best of my ability. This discharge took greater then 30 minutes in planning, reviewing documentation, counseling the patient, and discussing with other team members." ASSESSMENT ASSESSMENT Hospital Course Improved Assessment Acute alcoholic intoxication: Banana bag Librium counseling Acute dehydration: LR 125 mL/hour Acute diabetic ketoacidosis: Insulin sliding scale Uncontrolled diabetes A1c 13.2 glucose 318: Counseling Moderate malnutrition Chronic current alcohol abuse: Counseling Noncompliance patient says he was not using his Lantus for 3-4 days and was drinking alcohol Date of Service: May 04, 2025 Billing Provider: ROVERTO DWYER MD Common Visit Codes: [id number] DISCH DAY >30min ROVERTO DWYER MD May 04, 2025 12:21
[2025-05-04 13:00] VITALS: BP 118/83; PULSE 84; RESP 17; TEMP 98.6; O2SAT 100
== END 2025-05-04 15:37 | disposition home or self-care (01) | DRG 420 ==
LOC: ER 23:50 → OVERFLOW 05-02 11:50 → TELE-WESTW 05-02 21:51
PROVIDERS: ADMIT Family Medicine; ATTEND Family Medicine
DX: E11.10 Type 2 diabetes mellitus with ketoacidosis without coma (principal); E44.0 Moderate protein-calorie malnutrition; F10.129 Alcohol abuse with intoxication, unspecified; Z68.45 Body mass index [BMI] 70 or greater, adult; E86.0 Dehydration; T73.0XXA Starvation, initial encounter; Y90.6 Blood alcohol level of 120-199 mg/100 ml; Z91.199 Patient's noncompliance with other medical treatment and regimen due to unspecified reason; Z79.4 Long term (current) use of insulin
CPT/HCPCS: 36415; 36600; 71045; 80048; 80053; 80320; 81001; 82010; 82805; 82962; 83036; 83690; 83735; 83930; 84100; 85025; 99291; G0378; J1815; J1885; Q0162